=== PATIENT | female | born 1995 | race Caucasian/White ===

== ENCOUNTER 2018-07-02 11:32 | Emergency (ER) | payer SELFPAY ==
[2018-07-02 12:03] VITALS: BP 135/87
--- NOTE | 2018-07-02 12:35 | UC ---
Eye Complaint HPI - HPI Summary HPI Summary: 22 yo female presents with b/l eye complaints. She tells me that yesterday she woke up and noticed some red romeo under her eyelids and on her upper eyelid. Today seemed to be worse with increased swelling. She has been feeling well otherwise and denies fever, chills, vision change, eye itching/drainage, contacts, FB, injury, or recent illness. Has not had any new environmental contacts. - History of Current Complaint Chief Complaint: UCGeneralIllness Stated Complaint: BI LAT EYE CONCERN Time Seen by Provider: 07/02/18 12:35 Hx Obtained From: Patient Hx Last Menstrual Period: 06/21/18 Severity Currently: None Pain Intensity: 0 - Allergies/Home Medications Allergies/Adverse Reactions: Allergies Allergy/AdvReac Type Severity Reaction Status Date / Time No Known Allergies Allergy Verified 07/02/18 11:57 Home Medications: Home Medications Escitalopram Oxalate [Lexapro 20 mg] 20 mg PO DAILY 07/02/18 [History Confirmed 07/02/18] Tri-Estarylla (Nf) [Tri-Estarylla] 1 tab PO DAILY 07/02/18 [History Confirmed ] PMH/Surg Hx/FS Hx/Imm Hx Psychological History: Anxiety, Depression - Surgical History Surgical History: None - Family History Known Family History: Positive: None - Social History Occupation: Student Lives: Dormitory/Roommates Alcohol Use: Weekly Substance Use Type: None Smoking Status (MU): Never Smoked Tobacco Review of Systems Constitutional: Negative Skin: Other - Rash eyelids Respiratory: Negative Cardiovascular: Negative Neurovascular: Negative Neurological: Negative Psychological: Negative All Other Systems Reviewed And Are Negative: Yes Physical Exam - Summary Physical Exam Summary: GENERAL: NAD. WDWN. No pain distress. SKIN: B/L eyes: Upper eyelid with mild erythema in linear patterns. Lower eyelid with similar appearing romeo. Mild edema lower eyelids. No scleral injection or irritation. No stye. NECK: Supple. Nontender. No lymphadenopathy. CHEST: No accessory muscle use. Breathing comfortably and in no distress. CV: Pulses intact. Cap refill <2seconds NEURO: Alert. PSYCH: Age appropriate behavior. Triage Information Reviewed: Yes Vital Signs: Initial Vital Signs Temp 98.8 F 07/02/18 11:54 Pulse 78 07/02/18 11:54 Resp 16 07/02/18 11:54 BP 135/87 07/02/18 11:54 Pulse Ox 100 07/02/18 11:54 Vital Signs Reviewed: Yes Eye Complaint Course/Dx - Course Course Of Treatment: Suspect contact reaction or allergic reaction - will cover her for infectious process with erythromycin and reaction with prednisone - Differential Dx/Diagnosis Provider Diagnoses: Contact dermatitis Discharge - Sign-Out/Discharge Documenting (check all that apply): Patient Departure All imaging exams completed and their final reports reviewed: No Studies - Discharge Plan Condition: Stable Disposition: HOME Prescriptions: Erythromycin OPTH OINT* [Erythromycin 0.5% OPTH OINT*] 1 applic BOTH EYES TID # 1 tube predniSONE TAB* [Deltasone 20 MG TAB*] 40 mg PO DAILY #9 tab Patient Education Materials: Allergies (ED) Referrals: Steffany Kaiser PA [Primary Care Provider] - Additional Instructions: If you develop a fever, shortness of breath, chest pain, new or worsening symptoms - please call your PCP or go to the ED. - Billing Disposition and Condition Condition: STABLE Disposition: Home
== END 2018-07-02 12:45 | disposition home or self-care (01) ==
LOC: UCCORT 11:32
DX: L25.9 Unspecified contact dermatitis, unspecified cause (principal)
CPT/HCPCS: 99212; G0463

== ENCOUNTER 2018-12-18 20:11 | Emergency (ER) | payer SELFPAY ==
[2018-12-18 20:29] VITALS: BP 127/55
--- NOTE | 2018-12-18 21:05 | UC ---
Hand/Wrist HPI - HPI Summary HPI Summary: pt c/o left distal 4th finger pain, swelling X 4 weeks. Pt reports that 4 weeks ago she was very intoxicated, fell and hurt left 4th finger. Pt states that a "friend" attempted to "put finger back into joint". Pt has been applying ice, putting finger in a splint, taking ibuprofen.. Pt has mild swelling at DIP joint left 4th finger. - History Of Current Complaint Chief Complaint: UCUpperExtremity Stated Complaint: LEFT RING FINGER CONCERN Time Seen by Provider: 12/18/18 20:34 Hx Obtained From: Patient Hx Last Menstrual Period: 11/27/18 ?: No Onset/Duration: Sudden Onset, Lasting Weeks, Still Present Severity Initially: Moderate Severity Currently: Mild Pain Intensity: 2 Character Of Pain: Dull, Aching Aggravating Factor(s): Movement, Flexion, Extension Alleviating Factor(s): Rest Associated Signs And Symptoms: Positive: Swelling Related History: Dominant Hand Right - Allergies/Home Medications Allergies/Adverse Reactions: Allergies Allergy/AdvReac Type Severity Reaction Status Date / Time No Known Allergies Allergy Verified 07/02/18 11:57 Home Medications: Home Medications Ibuprofen [Goodsense Ibuprofen] 600 mg PO ONCE 12/18/18 [History Confirmed 12/18] PMH/Surg Hx/FS Hx/Imm Hx Previously Healthy: Yes - Surgical History Surgical History: None - Family History Known Family History: Positive: Cardiac Disease - Social History Occupation: Student Lives: With Family Alcohol Use: Weekly Substance Use Type: None Smoking Status (MU): Never Smoked Tobacco Have You Smoked in the Last Year: No Review of Systems All Other Systems Reviewed And Are Negative: Yes Constitutional: Positive: Negative Skin: Positive: Other - swelling an dmild erythema Eyes: Positive: Negative ENT: Positive: Negative Respiratory: Positive: Negative Cardiovascular: Positive: Negative Gastrointestinal: Positive: Negative Genitourinary: Positive: Negative Motor: Positive: Decreased ROM - left 4th DIP joint Neurovascular: Positive: Negative Musculoskeletal: Positive: Decreased ROM - left 4th finger DIP joint, Edema - left 4th finger DIP joint Neurological: Positive: Negative Psychological: Positive: Negative Is Patient Immunocompromised?: No Physical Exam Triage Information Reviewed: Yes Appearance: Well-Appearing Vital Signs: Initial Vital Signs Temp 98.1 F 12/18/18 20:26 Pulse 77 12/18/18 20:26 Resp 16 12/18/18 20:26 BP 127/55 12/18/18 20:26 Pulse Ox 100 12/18/18 20:26 Vital Signs Reviewed: Yes Eye Exam: Normal ENT Exam: Normal Dental Exam: Normal Neck exam: Normal Respiratory: Positive: No respiratory distress Musculoskeletal: Positive: Strength Limited @ - left 4th finger DIP joint, ROM Limited @ - left 4th finger DIP joint, Edema @ - left 4th finger DIP joint, mild and mild erythema, Neurological Exam: Normal Psychological Exam: Normal Skin Exam: Other - left 4th finger dip joint, skin is mild erythematous, and shiny Diagnostics - Radiology No standard instances Radiology Interpretation Completed By: ED Physician - left 4th finger DIP joint dislocation Hand/Wrist Course/Dx - Course Course Of Treatment: I spoke with DR. Meredith who recommended that we NOT reduce finger at . She recommended that pt be seen PRO by hand specialist. I discusseed this with PT and pt verbalized understanding and agreed to plan of care. Dr. Portillo also did not think pt needed to be on an antibiotic as long as pt was afebrile and di dnot have any open wound. - Differential Dx/Diagnosis Differential Diagnosis/HQI/PQRI: Dislocation, Fracture, Infection Provider Diagnosis: Dislocation of distal interphalangeal (DIP) joint of left ring finger Discharge - Sign-Out/Discharge Documenting (check all that apply): Patient Departure All imaging exams completed and their final reports reviewed: No - Discharge Plan Condition: Stable Disposition: HOME Patient Education Materials: Finger Dislocation (ED) Forms: *School Release, *Work Release Referrals: Nayla Abbott MD [Medical Doctor] - 12/19/18 Steffany Kaiser PA [Primary Care Provider] - If Needed Additional Instructions: Please follow up with Dr. Abbott tomorrow, 12/19/18. Additionally, please call MARGARITA De tomorrow to ask about Health Insurance. - Billing Disposition and Condition Condition: STABLE Disposition: Home
--- NOTE | 2018-12-19 08:46 | UC ---
- EKG/XRAY/CT Xray Comments: wet read correct Course/Dx - Diagnoses Provider Diagnoses: Dislocation of distal interphalangeal (DIP) joint of left ring finger Discharge - Sign-Out/Discharge Documenting (check all that apply): Post-Discharge Follow Up All imaging exams completed and their final reports reviewed: Yes - Discharge Plan Condition: Stable Disposition: HOME Patient Education Materials: Finger Dislocation (ED) Forms: *School Release, *Work Release Referrals: Nayla Abbott MD [Medical Doctor] - 12/19/18 Steffany Kaiser PA [Primary Care Provider] - If Needed Additional Instructions: Please follow up with Dr. Abbott tomorrow, 12/19/18. Additionally, please call MARGARITA De tomorrow to ask about Health Insurance. - Billing Disposition and Condition Condition: STABLE Disposition: Home
== END 2018-12-18 21:18 | disposition home or self-care (01) ==
LOC: UCCORT 20:11
DX: S63.295A Dislocation of distal interphalangeal joint of left ring finger, initial encounter (principal); W19.XXXA Unspecified fall, initial encounter; Y92.9 Unspecified place or not applicable
CPT/HCPCS: 73140; 99211; G0463

== ENCOUNTER 2018-12-24 06:16 | Day surgery (SDC) | payer SELFPAY ==
--- NOTE | 2018-12-20 09:20 | HP ---
PREOPERATIVE HISTORY AND PHYSICAL: DATE OF SURGERY/ADMISSION: 12/24/18 DATE OF OFFICE VISIT/ENCOUNTER: 12/19/18 ATTENDING SURGEON: Nayla Abbott MD* (dictated by DOMINIQUE Muse). PROCEDURE: Left ring finger phalanx closed possible open reduction, percutaneous fixation. CHIEF COMPLAINT: Left ring finger pain after injury. HISTORY OF PRESENT ILLNESS: This is a 23-year-old female, student at [employer]. She injured her left ring finger on 11/23/18. She had been drinking and was messing around with a friend wrestling. She suffered an injury to her ring finger and does not know exactly what happened. On 12/18/18, she ended up getting an x-ray, which shows that her DIP joint is dislocated and has been so for about a month now. She does get some pain relief with ibuprofen. She denies any associated numbness or tingling. She has consented to proceed with surgical intervention at this time. PAST MEDICAL HISTORY: Unremarkable. PAST SURGICAL HISTORY: None. CURRENT MEDICATIONS: Tri Femynor 1 tablet daily. ALLERGIES: No known drug allergies. FAMILY MEDICAL HISTORY: Heart disease. 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 She denies tobacco use or recreational drug use. She does drink alcohol on occasion. REVIEW OF SYSTEMS: Negative for general, cephalic, cardiovascular, respiratory , GI, , other musculoskeletal, integumentary, endocrine, neurologic or hematologic symptoms. Infectious Disease: Negative for MRSA, hepatitis C, HIV. PHYSICAL EXAMINATION GENERAL: A well-developed, well-nourished 23-year-old female, in no acute distress. VITAL SIGNS: Height 5 feet 1 inch, weight 126 pounds. Pulse rate 55. HEENT: Normocephalic, atraumatic. Pupils are equal, round, and reactive to light and accommodation. Extraocular movements are intact. Throat is clear. NECK: Supple. No palpable lymph nodes. PULMONARY: Lungs are clear to auscultation bilaterally. No wheezes, rales, or rhonchi. CARDIOVASCULAR: Regular rate and rhythm. S1, S2. No murmurs, rubs, or gallops. No edema. ABDOMEN: Positive bowel sounds. Soft, nontender. NEUROLOGICAL: Alert and oriented x3. Cranial nerves II through XII are intact. Sensation is intact to light touch. MUSCULOSKELETAL: On exam of her left ring finger, she has an obvious deformity and swelling at the DIP joint. It is very tender to palpation. She cannot flex the joint. She has good motion of her PIP joint. Skin is intact. Neurovascular function is intact. IMAGING STUDIES: X-rays, AP, lateral, and oblique of the left ring finger show dislocation of the DIP joint with a couple of small dorsal fracture fragments. IMPRESSION: Left ring finger DIP joint dislocation, chronic. PLAN: The patient is scheduled to undergo a left ring finger phalanx closed possible open reduction and percutaneous fixation with Dr. Abbott on 12/24/18. She will return to the office 10 days postop for followup and suture removal. A prescription of Ultracet was e-scribed to the patient's pharmacy for postoperative pain management. DOMINIQUE MUSE [id number]/[facility] #: [id number] AMANDEEP
[~2018-12-24 06:16] MED LIST: Buffered Lidocaine 1% SYRIN* 1 ML/SYRINGE INTRADERM ONE; Dexamethasone TAB* 4 MG ONE; Dexamethasone TAB* 4 MG PO ONE; DiMENhydriNATE IV* 50 MG/ML VIAL IV PUSH PRN; Famotidine IV* 10 MG/ML 2 ML (20 mg) IV ONE; Famotidine IV* 10 MG/ML 2 ML (20 mg) ONE; Lactated Ringers 1000 ML Bag* 1,000 ML IV SCH; Morphine VIAL* 4 MG/ML VIAL (1 ml vial) IV PRN; Naloxone* 0.4 MG/ML 1 ML VIAL IV PRN; Ondansetron ODT TAB* 4 MG ONE; Ondansetron TAB* 4 MG PO ONE; PROCHLORPERAZINE INJ 5 MG/ML 2 ML VIAL IV PRN; ceFAZolin 2 GM PREMIX in ORs 2 GM/50 ML BAG IVPB ONE; fentaNYL* 50 MCG/ML 2 ML VIAL (100 MCG VIAL) IV PRN; oxyCODONE/Acetamin 5/325 MG* TAB PO PRN
[2018-12-24] MEDS ORDERED: fentaNYL* 50 MCG/ML 2 ML VIAL (100 MCG VIAL) ONE (07:12)
[2018-12-24] MEDS ORDERED: KETAMINE HCL* 50 MG/ML 10 ML VIAL ONE (07:12)
[2018-12-24] MEDS ORDERED: Midazolam* 1 MG/ML 5 ML VIAL (5 MG) ONE (07:12)
[2018-12-24] MEDS ORDERED: Lidocaine 1% INJ* 10 MG/ML 30 ML SDV ONE (07:22)
[2018-12-24] MEDS ORDERED: Bupivacaine 0.5%* 50 ML VIAL ONE (07:22)
[2018-12-24] MEDS ORDERED: Propofol* 10 MG/ML 20 ML BTL ONE (07:56)
[2018-12-24] MEDS ORDERED: Ketorolac INJ* 30 MG/ML 1 ML VIAL ONE (07:56)
[2018-12-24] MEDS ORDERED: Lidocaine 2% PF * 5 ML VIAL ONE (07:56)
[2018-12-24 08:37] VITALS: BP 104/62
--- NOTE | 2018-12-24 09:54 | OP ---
DATE OF OPERATION: 12/24/18 [facility] DATE OF : [birth year] SURGEON: Nayla Abbott MD. INTEGRATED PROGRAM TEACHER: DOMINIQUE Muse. ANESTHESIA: Local MAC. PRE-OP DIAGNOSIS: Fracture dislocation of the left ring finger distal phalanx. POST-OP DIAGNOSIS: Fracture dislocation of the left ring finger distal phalanx. OPERATIVE PROCEDURE: Closed reduction and pinning of left ring finger distal phalanx. ESTIMATED BLOOD LOSS: Zero. TOURNIQUET TIME: No tourniquet was used during the procedure. DESCRIPTION OF PROCEDURE: The patient was brought to the operating room, was given a sedation anesthetic and a digital block with 10 cc of 1% plain lidocaine. The skin of her left hand and forearm was prepped and draped in the usual sterile fashion. The DIP joint was manipulated, and on the C-arm, I could see that I was able to completely reduce the DIP joint and the fracture fragment. Therefore, no incision was made. The DIP joint was flexed, and a single 0.035 inch K-wire was driven just proximal to the dorsal fracture fragments and into the distal aspect of the middle phalanx. Next, the joint was reduced and a second 0.035 inch K-wire was driven retrograde from the tip of the distal phalanx and across the DIP joint into the middle phalanx. This held the joint in concentric reduction. The position of the hardware and joint surfaces was checked on the C-arm in the AP and lateral views and found to be satisfactory. The pins were bent and cut, dressed with pin cap, Xeroform, 4x4, Webril, and a AlumaFoam splint. The patient tolerated the procedure well and was brought to the recovery room in good condition. [id number]/[facility] #: [id number] HEALTH SYSTEMHayder
== END 2018-12-24 08:59 | disposition home or self-care (01) ==
LOC: OREAST 06:16
PROVIDERS: ATTEND Orthopaedic Surgery
DX: S63.295A Dislocation of distal interphalangeal joint of left ring finger, initial encounter (principal); X50.0XXA Overexertion from strenuous movement or load, initial encounter; Y92.9 Unspecified place or not applicable
CPT/HCPCS: 76000; 81025; A9270-GY; C1776; J0690; J1885; J2250; J2704; J3010; J8540

== ENCOUNTER 2019-02-11 11:03 | Emergency (ER) | payer BC ==
--- OUTSIDE RECORDS SUMMARY | 2019-02-11 11:18 | XMS REPORT | Continuity of Care Document ---
:1995 External Reference #:[id number] Author Name Dhara Moseley Care Team Providers Name Role Phone Steffany Kaiser PA Primary Care Physician Unavailable Payers Date Identification Numbers Payment Provider Subscriber Policy Number: [id number] [employer] Neema Katz PayID: [id number] [address] [address] [place] [address] Advance Directives Description No Information Available Problems Description No Information Family History Description No Information Available Social History Type Date Description Comments Sex Unknown Tobacco Use Start: Unknown Patient has never smoked Smoking Status Reviewed: 02/06/19 Patient has never smoked Allergies, Adverse Reactions, Alerts Description No Known Drug Allergies Medications Active Medications SIG Qnty Indications Ordering Provider Date Tri Femynor Take 1 Tablet By Unknown Mouth Every Day 0.18/0.215/0.25 mg-35 mcg Tablets History Medications Ultracet 1 tab by mouth 15tabs Nayla Abbott, 12/19/2018 - 37.5-325mg every 4-6 hours M.D. 01/23/2019 Tablets as needed pain Immunizations Description No Information Available Vital Signs Date Vital Result Comment 02/06/2019 8:13am Height 61 inches 5'1" Weight 114.00 lb Heart Rate 81 /min BP Systolic Sitting 110 mmHg BP Diastolic Sitting 68 mmHg Respiratory Rate 14 /min Pain Level 0 BMI (Body Mass Index) 21.5 kg/m2 01/23/2019 1:43pm Height 61 inches 5'1" Weight 114.00 lb BP Systolic 116 mmHg BP Diastolic 74 mmHg Pain Level 0 BMI (Body Mass Index) 21.5 kg/m2 01/03/2019 1:25pm Height 61 inches 5'1" Weight 114.75 lb Heart Rate 72 /min BP Systolic 100 mmHg BP Diastolic 58 mmHg Respiratory Rate 16 /min Body Temperature 97.5 F Pain Level 0 BMI (Body Mass Index) 21.7 kg/m2 12/19/2018 2:09pm Height 61 inches 5'1" Weight 126.00 lb Heart Rate 55 /min Respiratory Rate 14 /min Body Temperature 97.4 F Pain Level 4 BMI (Body Mass Index) 23.8 kg/m2 Results Description No Information Available Procedures Date Code Description Status 12/24/2018 36769 Percutaneous Skeletal Fixation Of Distal Phalangeal Completed FX,Finger/Marlene 12/24/2018 70224 Percutaneous Skeletal Fixation Of Distal Phalangeal Completed FX,Finger/Marlene Encounters Type Date Location Provider Dx Diagnosis Office Visit 12/19/2018 [facility] N[facility]la Abbott, S63.295A Dislocation of 2[facility] distal interphaln [facility] joint of cesar hayesg fngr, init Plan of Treatment Future Appointment(s):03/06/2019 8:15 am - Nayla Abbott M.D. at [facility]02/06/2019 - Nayla Abbott M.D.S62.635D Displaced fracture of distal phalanx of left ring finger, suNew Xrays:Finger Left Ring, Ordered: Follow up:Follow up: 4 [id number] Dislocation of distal interphalangeal joint of left ring fin
[2019-02-11 11:44] VITALS: BP 104/78
[2019-02-11] MEDS ORDERED: Ibuprofen TAB* 600 MG PO ONE (11:46)
--- NOTE | 2019-02-11 12:00 | UC ---
Back Pain HPI - History of Current Complaint Chief Complaint: UCRespiratory Stated Complaint: THROAT COMPLAINT Time Seen by Provider: 02/11/19 11:46 Hx Last Menstrual Period: 02/10/19 Pain Intensity: 8 - Allergies/Home Medications Allergies/Adverse Reactions: Allergies Allergy/AdvReac Type Severity Reaction Status Date / Time No Known Allergies Allergy Verified 02/11/19 11:35 PMH/Surg Hx/FS Hx/Imm Hx - Surgical History Surgical History: Yes Surgery Procedure, Year, and Place: LEFT RING FINGER PIN PLACEMENT OPEN - Family History Known Family History: Positive: None, Cardiac Disease - Social History Alcohol Use: Weekly Alcohol Amount: WEEKENDS Substance Use Type: Cocaine Substance Use Comment - Amount & Last Used: COCAINE ON OCCASION- LAST 12/21/18- REPORTS WILL NOT USE PRIOR TO SURGERY Smoking Status (MU): Never Smoked Tobacco Have You Smoked in the Last Year: No Physical Exam Vital Signs: Initial Vital Signs Temp 103 F 02/11/19 11:36 Pulse 146 02/11/19 11:36 Resp 20 02/11/19 11:36 BP 104/78 02/11/19 11:36 Pulse Ox 99 02/11/19 11:36 Discharge - Discharge Plan Referrals: Steffany Kaiser PA [Primary Care Provider] -
--- NOTE | 2019-02-11 12:11 | UC ---
Throat Pain/Nasal Scout HPI - HPI Summary HPI Summary: sore throat x 4 days pain is 8 out of 10 , worse with eating , better with rest and Tylenol + fever, chills body aches no cough , no runny nose, no abdominal pain - History of Current Complaint Chief Complaint: UCRespiratory Stated Complaint: THROAT COMPLAINT Time Seen by Provider: 02/11/19 11:46 Hx Obtained From: Patient Hx Last Menstrual Period: 02/10/19 Onset/Duration: Gradual Onset, Lasting Days - 4, Still Present Severity: Severe Pain Intensity: 8 Cough: None Associated Signs & Symptoms: Positive: Fever. Negative: Dysphagia, FB Sensation , Drooling, Wheezing, Hoarseness, Sinus Discomfort, Nasal Discharge, Rash - Allergies/Home Medications Allergies/Adverse Reactions: Allergies Allergy/AdvReac Type Severity Reaction Status Date / Time No Known Allergies Allergy Verified 02/11/19 11:35 PMH/Surg Hx/FS Hx/Imm Hx Previously Healthy: Yes - Surgical History Surgical History: Yes Surgery Procedure, Year, and Place: LEFT RING FINGER PIN PLACEMENT OPEN - Family History Known Family History: Positive: None, Cardiac Disease - Social History Alcohol Use: Weekly Alcohol Amount: WEEKENDS Substance Use Type: Cocaine Substance Use Comment - Amount & Last Used: COCAINE ON OCCASION- LAST 12/21/18- REPORTS WILL NOT USE PRIOR TO SURGERY Smoking Status (MU): Never Smoked Tobacco Have You Smoked in the Last Year: No Review of Systems All Other Systems Reviewed And Are Negative: Yes Constitutional: Positive: Fever, Chills, Fatigue Skin: Positive: Negative Eyes: Positive: Negative ENT: Positive: Sore Throat. Negative: Nasal Discharge Respiratory: Negative: Cough Cardiovascular: Positive: Negative Gastrointestinal: Positive: Negative. Negative: Abdominal Pain, Vomiting, Diarrhea, Nausea Is Patient Immunocompromised?: No Physical Exam Triage Information Reviewed: Yes Appearance: Well-Nourished, Pain Distress Vital Signs: Initial Vital Signs Temp 103 F 02/11/19 11:36 Pulse 146 02/11/19 11:36 Resp 20 02/11/19 11:36 BP 104/78 02/11/19 11:36 Pulse Ox 99 02/11/19 11:36 Vital Signs Reviewed: Yes Eye Exam: Normal Eyes: Positive: Conjunctiva Clear ENT: Positive: Normal ENT inspection, Hearing grossly normal, Pharyngeal erythema, TMs normal, Tonsillar swelling, Tonsillar exudate. Negative: Nasal congestion, Nasal drainage, Trismus Neck: Positive: Supple, Nontender, No Lymphadenopathy Respiratory: Positive: Chest non-tender, Lungs clear, Normal breath sounds Cardiovascular: Positive: Tachycardia Abdomen Description: Positive: Nontender, No Organomegaly, Soft. Negative: CVA Tenderness (R), CVA Tenderness (L) Bowel Sounds: Positive: Present Skin Exam: Normal Throat Pain/Nasal Course/Dx - Differential Dx/Diagnosis Provider Diagnosis: Pharyngitis Discharge - Sign-Out/Discharge Documenting (check all that apply): Patient Departure All imaging exams completed and their final reports reviewed: No Studies - Discharge Plan Condition: Stable Disposition: HOME Prescriptions: Amoxicillin PO (*) [Amoxicillin 875 MG (*)] 875 mg PO BID #20 tab Patient Education Materials: Pharyngitis (ED) Referrals: Steffany Kaiser PA [Primary Care Provider] - 7 Days - Billing Disposition and Condition Condition: STABLE Disposition: Home
== END 2019-02-11 12:10 | disposition home or self-care (01) ==
LOC: UCCORT 11:03
DX: J02.9 Acute pharyngitis, unspecified (principal); R50.9 Fever, unspecified
CPT/HCPCS: 87651; 99212; A9270-GY; G0463

== ENCOUNTER 2019-09-29 16:52 | Emergency (ER) | payer BC ==
[2019-09-29 17:28] VITALS: BP 121/78
--- NOTE | 2019-09-29 18:00 | UC ---
Nausea/Vomiting/Diarrhea HPI - HPI Summary HPI Summary: Patient is a 24-year-old female presenting with persistent nausea and vomiting 1 week. Patient states she is constantly nauseous and vomits "every time she tries to eat something." Does not recall what she was doing or what she ate the day that it started. When asked if she is able to eat anything down she states only water. Denies hematemesis. Denies abdominal pain. Denies alleviating factors for nausea. States only alleviating factor for vomiting is to not eat. Denies diarrhea. Denies URI symptoms. Does note intermittent headache. Denies urinary symptoms. Notes normal BMs. LMP started yesterday and denies any chance of . Patient also notes that her "vision gets weird" at times. Patient states this is not new for her and has happened in the past. She describes it as "blurriness in her peripheral vision that lasts for less than 30 seconds." Patient states she's not currently experiencing vision changes. Denies shortness of breath, wheezing, difficulty breathing, chest pain. Denies history of GI disorders or anything like this in the past. - History of Current Complaint Chief Complaint: UCGU Stated Complaint: VOMITING, UNABLE TO EAT Hx Obtained From: Patient Hx Last Menstrual Period: 09/28/19 Pain Intensity: 0 - Allergies/Home Medications Allergies/Adverse Reactions: Allergies Allergy/AdvReac Type Severity Reaction Status Date / Time No Known Allergies Allergy Verified 09/29/19 17:23 Home Medications: Home Medications FLUoxetine CAP* [PROzac CAP*] 20 mg PO DAILY 09/29/19 [History Confirmed ] PMH/Surg Hx/FS Hx/Imm Hx - Surgical History Surgical History: Yes Surgery Procedure, Year, and Place: LEFT RING FINGER PIN PLACEMENT OPEN - Family History Known Family History: Positive: None, Cardiac Disease - Social History Alcohol Use: Occasionally Alcohol Amount: WEEKENDS Substance Use Type: None Substance Use Comment - Amount & Last Used: COCAINE ON OCCASION- LAST 12/21/18- REPORTS WILL NOT USE PRIOR TO SURGERY Smoking Status (MU): Never Smoked Tobacco Have You Smoked in the Last Year: No Review of Systems All Other Systems Reviewed And Are Negative: Yes Constitutional: Positive: Fatigue. Negative: Fever, Chills Skin: Positive: Negative Eyes: Positive: Other - "burry peripheral vision at times lasting less that 30 seconds". Negative: Diplopia, Drainage, Eye Redness, Photophobia ENT: Positive: Negative Respiratory: Positive: Negative. Negative: Shortness Of Breath, Cough Cardiovascular: Positive: Negative Gastrointestinal: Positive: Vomiting - after eating solids, Nausea - constant. Negative: Abdominal Pain, Diarrhea Genitourinary: Positive: Negative Musculoskeletal: Positive: Negative Neurological: Positive: Headache - intermittent Physical Exam Triage Information Reviewed: Yes Appearance: Well-Appearing, No Pain Distress, Well-Nourished Vital Signs: Initial Vital Signs Temp 98.4 F 09/29/19 17:20 Pulse 88 09/29/19 17:20 Resp 16 09/29/19 17:20 BP 121/78 09/29/19 17:20 Pulse Ox 99 09/29/19 17:20 Vital Signs Reviewed: Yes Eye Exam: Other - PERRLA. EOM intact Eyes: Positive: Conjunctiva Clear ENT: Positive: Hearing grossly normal Neck: Positive: Supple Respiratory Exam: Normal Respiratory: Positive: Lungs clear, Normal breath sounds, No respiratory distress, No accessory muscle use. Negative: Crackles, Rhonchi, Stridor, Wheezing Cardiovascular Exam: Normal Cardiovascular: Positive: RRR Abdominal Exam: Normal Abdomen Description: Positive: Nontender, No Organomegaly, Soft. Negative: CVA Tenderness (R), CVA Tenderness (L), Distended, Guarding, McBurney's Point Tenderness Bowel Sounds: Positive: Present Neurological: Positive: Alert Psychological: Positive: Age Appropriate Behavior Skin Exam: Normal - no erythema or ecchymosis Naus/Vom/Diarrhea Course/Dx - Course Course Of Treatment: Patient presenting with n/v x1 week. Patient received zofran here which she noted "relieved a lot of the nausea." She was able to drink water but declined crackers or solid foods, stating she would "just try to eat when she gets home. " Instructed patient to increase fluids and eat bland diet as tolerated. Instructed to follow up with pcp within the next couple days if symptoms persist. Instructed to go to ED with any new or worsening symptoms. Patient voiced understanding and agreed with treatment plan. VS and PE normal. - Differential Dx/Diagnosis Differential Diagnoses - Female: Gastroenteritis (Viral) Provider Diagnosis: Nausea and vomiting in adult Condition At Discharge: Stable - Physician Notification/Consults Discussed Case/Management/Disposition Of Patient With: Kyle Dobson Discharge ED - Sign-Out/Discharge Documenting (check all that apply): Patient Departure All imaging exams completed and their final reports reviewed: No Studies - Discharge Plan Condition: Stable Disposition: HOME Prescriptions: Ondansetron ODT TAB* [Zofran 4 MG Odt TAB*] 4 mg PO Q8H PRN #6 tab.odt PRN Reason: Nausea/Vomiting Patient Education Materials: Acute Nausea and Vomiting (ED), Ondansetron (By mouth) Referrals: Steffany Kaiser PA [Primary Care Provider] - If Needed Additional Instructions: As discussed, take the zofran as prescribed for your nausea and vomiting. Get plenty of rest and increase your fluid intake. Eat a bland diet, such as bread, bananas, and rice while symptoms are present. Follow up with your primary care provider if your symptoms do not resolve within the next few days. Go to the emergency room if you develop new or worsening symptoms including fever, excessive vomiting, or are unable to keep fluids down. - Billing Disposition and Condition Condition: STABLE Disposition: Home
[2019-09-29] MEDS ORDERED: Ondansetron ODT TAB* 4 MG SL ONE (18:08)
== END 2019-09-29 19:00 | disposition home or self-care (01) ==
LOC: UCCORT 16:52
DX: R11.2 Nausea with vomiting, unspecified (principal); R53.83 Other fatigue; H57.89 Other specified disorders of eye and adnexa; R51 Headache
CPT/HCPCS: 99212; A9270-GY; G0463